=== PATIENT | male | born 1970 | race Caucasian/White ===

== ENCOUNTER → 2019-12-15 | Outpatient (CLI) | payer BC ==
[~2019-12-15] VITALS: Ht 165.1 cm; Wt 61.0 kg
[~2019-12-15] MED LIST: ATOR20TA65 PO; DOXY100C2 PO; LOSA25TA2 PO; METO-408 PO; TICA90TA PO
[2019-12-15 12:34] VITALS: BP 128/90
== END | disposition home or self-care (01) ==
LOC: SRCNTR 12:31
PROVIDERS: ATTEND Internal Medicine Clinical Cardiac Electrophysiology
DX: Z45.018 Encounter for adjustment and management of other part of cardiac pacemaker (principal)
CPT/HCPCS: G0463

== ENCOUNTER → 2019-12-18 | Outpatient (CLI) | payer BC ==
[~2019-12-18] VITALS: Ht 165.1 cm; Wt 63.5 kg
[2019-12-18 10:50] VITALS: BP 103/66
== END | disposition home or self-care (01) ==
LOC: SRCNTR 10:49
PROVIDERS: ATTEND Internal Medicine Clinical Cardiac Electrophysiology
DX: Z45.018 Encounter for adjustment and management of other part of cardiac pacemaker (principal)
CPT/HCPCS: G0463